=== PATIENT | male | born 1995 | race Caucasian/White ===

== ENCOUNTER 2020-02-15 20:42 | Emergency (ER) | payer OTHER, SELFPAY ==
--- NOTE | ~2020-02-15 | CT_ITS ---
EXAMINATION: CT abdomen pelvis w con DATE: 02/15/2020 21:54 INDICATION: Free intraperitoneal gas. Assess for viscus perforation. TECHNIQUE: Computed tomography (CT) of the abdomen and pelvis was performed with 100 mL Omnipaque-350 intravenous contrast. Automated exposure control and iterative reconstruction technique were employe d. The dose-length product was 1693.02 mGy-cm. COMPARISON: None FINDINGS: Mild discoid atelectasis in the right lower lobe. Heart size is normal. No pericardial or pleural eff usion. Slightly heterogeneous pattern of diffuse hepatic steatosis which is greatest in the right hep atic lobe. Gallbladder, spleen, pancreas, bilateral adrenal glands and kidneys are normal. Postoperat issac changes recent appendectomy with suture line at the tip of the cecum, small amount of free intrap eritoneal gas in the nondependent abdomen and pelvis and extending along the left inguinal canal. The re is also a small amount of ascites in the pelvis and scattered throughout the mesentery. Mild perip heral enhancement at a 2.6 x 1.3 x 3.1 cm loculated fluid collection near the site of the appendectom y in the right lower quadrant which could represent a small abscess. Gas and fluid is seen throughout the small bowel extending to the ileocecal valve with no rosemarie dilation or discrete transition point to suggest obstruction and is most consistent with a postoperative ileus. Largely decompressed colon is unremarkable. Decompressed bladder is unremarkable. No pathologically enlarged abdominal or pelvi c lymphadenopathy. Minimal gas in the subcutaneous fat at the left and right sides of the anterior pe lvic wall at the umbilicus likely along laparoscopy port tracts. Decreased bilateral anterosuperior f emoral head/neck offset which can predispose towards impingement. Mild bilateral hip osteoarthritis. IMPRESSION: 1. Postoperative change of recent appendectomy including small amount of free intraperitoneal gas and fluid. 2. Mild peripheral enhancement at a 2.6 x 1.3 x 3.1 cm loculated fluid collection near the site of th e appendectomy which could represent an early abscess but which is too small for percutaneous drainag e. 3. Likely postoperative ileus with fluid-filled small bowel without rosemarie dilation or transition poin t to suggest obstruction. Reviewed, dictated and finalized at location A. ERCIAL HVAC TECHNICIAN IMPRESSION: 1. Postoperative change of recent appendectomy including small amount of free i ntraperitoneal gas and fluid. 2. Mild peripheral enhancement at a 2.6 x 1.3 x 3.1 cm loculated fluid collecti on near the site of the appendectomy which could represent an early abscess but which is too small for percutaneous drainage. 3. Likely postoperative ileus with fluid-filled small bowel without rosemarie dilat ion or transition point to suggest obstruction.
--- NOTE | ~2020-02-15 | XR_ITS ---
EXAMINATION: XR abdomen obstructive series DATE: 02/15/2020 21:33 INDICATION: Abdominal distention and vomiting. TECHNIQUE: Frontal supine and upright views of the abdomen were obtained. COMPARISON: None. FINDINGS: There is some free intraperitoneal gas below the right hemidiaphragm. Per provided history patient ryan d a recent appendectomy 3 days prior and this likely represents residual postoperative gas. There are few gas-filled but not frankly dilated loops of small bowel in the midabdomen most likely postoperat issac ileus although differential would include an early or partial small bowel obstruction. Suture ezio es in the right lower quadrant in expected location for appendectomy. Lung bases are clear. Heart siz e is normal. IMPRESSION: 1. Free intraperitoneal gas below the right hemidiaphragm most likely postoperative given the histor y of recent surgery. 2. Air-fluid levels and gas within a few nondilated loops of small bowel most likely postoperative il eus although differential would include early or partial small bowel obstruction. Reviewed, dictated and finalized at location A. ODYNAMICS TEACHER IMPRESSION: 1. Free intraperitoneal gas below the right hemidiaphragm most likely postoper ative given the history of recent surgery. 2. Air-fluid levels and gas within a few nondilated loops of small bowel most l ikely postoperative ileus although differential would include early or partial small bowel obstruction.
[2020-02-15 20:46] VITALS: BP 140/95; PULSE 129; RESP 21; TEMP 36.1; O2SAT 94
--- NOTE | 2020-02-15 20:48 | ED.GENADULT ---
HPI - General Adult General Chief complaint: Nausea/Vomiting/Diarrhea Stated complaint: NAUSEA/[facility]ITING [facility] Time Seen by Provider: 02/15/20 20:47 Source: patient and family Mode of arrival: ambulatory Limitations: no limitations History of Present Illness HPI narrative: This 24-year-old male is here due to repetitive vomiting postoperatively. It is non-bilious, most recently yellowish . Patient had an appendectomy Saturday, discharged Saturday afternoon at the [facility]. He was discharged on oxycodone and Tylenol for pain and MiraLAX as a stool softener. He states he has been unable to take any medications today due to vomiting. Denies fever or chills, he had 1 small stool and states that his urine is very dark small volume. Onset (ago): hour(s) Treatments prior to arrival: none Related Data Allergies Allergy/AdvReac Type Severity Reaction Status Date / Time No Known Allergies Allergy Verified 02/15/20 20:44 Review of Systems Review of Systems: All systems reviewed & are unremarkable except as noted in HPI and below [facility] Social History Social History (Updated 02/15/20 @ 20:58 by Michelle Salinas PA-C) Smoking status: Never smoker Alcohol intake: never Substance use: never Living arrangements: with family Occupation/Education: occupation Additional occupation/education comments: Exam Const: General: alert and ill appearing acutely Orientation/consciousness: patient oriented x3 HENMT: Head: normal to inspection Eyes: Sclera: scleral abnormality Pupils: Equal, round and reactive pupils present Resp: Effort & Inspection: normal respiratory effort Auscultation: clear to auscultation bilaterally Cardio: Rate: tachycardic (124) Rhythm: regular rhythm GI: Inspection: distended Percussion: Yes tympanic to percussion Auscultation: absent bowel sounds Other: 3 small incisions intact, without drainage or erythema Skin: General skin exam: pallor Neuro: General: patient oriented x3 and moves all extremities Extrem: General: normal to inspection Psych: Mental Status: mental status grossly normal Course Course Emergency Course: Verbal report from radiologist states that there is some free air under the right hemidiaphragm, may be residual postoperative air versus perforation. There is concern for ileus as well. Recommends CT with contrast. Plan discussed with patient and . Spoke with surgery attending, Dr. Guero Thornton at the [facility]. He accepts patient, would like ER-ER transfer. Would like Zosyn and Flagyl given. Plan discussed with patient. I also discussed NG placement with patient and he refused. Vital Signs Vital signs: Vital Signs Temperature 36.1 C L 02/15/20 20:46 Pulse Rate 129 H 02/15/20 20:46 Respiratory Rate 21 H 02/15/20 20:46 Blood Pressure 140/95 H 02/15/20 20:46 Pulse Oximetry 94 02/15/20 20:46 Temperature 36.7 C 02/16/20 00:23 Pulse Rate 96 02/16/20 00:23 Respiratory Rate 17 02/16/20 00:23 Blood Pressure 145/94 H 02/16/20 00:23 Pulse Oximetry 97 02/16/20 00:23 Medical Decision Making Differential Diagnosis Differential Diagnosis: post-operative ileus vs perforation. Vital Signs Vital Signs: Vital Signs Temperature 36.1 C L 02/15/20 20:46 Pulse Rate 129 H 02/15/20 20:46 Respiratory Rate 21 H 02/15/20 20:46 Blood Pressure 140/95 H 02/15/20 20:46 Pulse Oximetry 94 02/15/20 20:46 Temperature 36.7 C 02/16/20 00:23 Pulse Rate 96 02/16/20 00:23 Respiratory Rate 17 02/16/20 00:23 Blood Pressure 145/94 H 02/16/20 00:23 Pulse Oximetry 97 02/16/20 00:23 Lab Data Lab results reviewed: Yes I reviewed the patient's lab results. Result diagrams: 02/15/20 20:53 02/15/20 20:53 Labs: Lab Results 02/15/20 02/15/20 02/15/20 Range/Units 20:53 20:53 21:11 WBC 13.1 H (4.5-10.0) K/mm3 RBC 5.79 (4.6-6.20) M/mm3 Hgb 16.9 (14.0-18.0) g/dL Hct 49.3
[2020-02-15 21:01] LABS: Basophils Percent Auto 0.2 % (0.2-1.2); Eosinophils Percent Auto 0.2 % (0-4.4); Hematocrit 49.3 % (42.0-52.0); Hemoglobin 16.9 g/dL (14.0-18.0); Immature Granulocyte Absolute 0.05 K/mm3 (0.00-0.031); Immature Granulocyte Percent A 0.4 % (0-0.5); Lymphocytes Absolute Auto 1.33 K/mm3 (0.9-3.2); Lymphocytes Percent Auto 10.2 % (18.3-44.2); Mean Corpuscular HGB Conc 34.3 g/dl (32-36); Mean Corpuscular Hemoglobin 29.2 pg (26-34); Mean Corpuscular Volume 85.1 fl (80-100); Mean Platelet Volume 10.4 fl (7.4-10.4); Monocytes Absolute Auto 1.7 K/mm3 (0.1-0.6); Monocytes Percent Auto 13.1 % (2.6-8.5); Neutrophils Absolute Auto 9.9 K/mm3 (1.3-6.7); Neutrophils Percent Auto 75.9 % (45.5-73.1); Platelet Count Result 496 k/mm3 (150-375); Red Blood Count 5.79 M/mm3 (4.6-6.20); Red Cell Distribution Width 12.3 % (11.5-14.5); White Blood Count 13.1 K/mm3 (4.5-10.0)
[2020-02-15 21:14] LABS: Alanine Aminotransferase 36 U/L (4-50); Albumin Level 4.6 g/dL (3.5-5.1); Alkaline Phosphatase 99 U/L (38-126); Anion Gap 17 mmol/L (8-16); Aspartate Amino Transferase 37 U/L (17-59); Bilirubin,Total 0.7 mg/dL (0.2-1.3); Blood Urea Nitrogen 30 mg/dL (9-20); Calcium 10.3 mg/dL (8.4-10.2); Carbon Dioxide 23 mmol/L (22-30); Chloride 99 mmol/L (98-107); Estimated CRCL calculation 109 ml/min; Estimated Glomerular Filt Rate > 60; Glucose 162 mg/dL (75-110); Lipase 29 U/L (23-300); Potassium 4.1 mmol/L (3.4-5.0); Sodium 139 mmol/L (137-145)
[2020-02-15] MEDS: ONDANSETRON INJ 4 MG/2 ML VIAL IV PUSH ×2 (21:23→23:03)
[2020-02-15] MEDS: SODIUM CHLORIDE 0.9% IV 1,000 ML 999 ML IV CONT ×2 (21:23→23:03)
[2020-02-15 21:28] LABS: Add Urine Microscopic? YES; Appearance Urine Cloudy (Clear); Bilirubin Urine 1+ (Negative); Blood Urine Negative (Negative); Color Urine Amber (Yellow); Glucose Urine UA Negative (Negative); Hyaline Casts Urine 30-49 /lpf; Ketones Urine Trace mg/dL (Negative); Leukocyte Esterase Ur Negative LEU/UL (Negative); Mucus Urine Heavy /lpf; Nitrate Urine Negative (Negative); Protein Urine 2+ mg/dL (Negative); Squamous Epithelial Cell Urine Occasional /hpf (Few); WBC Urine 0-3 /hpf
[2020-02-15 21:35] LABS: Specific Grav Ur 1.035 (1.001-1.035)
[2020-02-15] MEDS: metroNIDAZOLE 500 MG/ISO 100ML 500 MG/100 ML BAG 100 MG IVPB (23:01)
[2020-02-16 00:23] VITALS: BP 145/94; PULSE 96; RESP 17; TEMP 36.7; O2SAT 97
--- NOTE | 2020-02-16 00:46 | PC.NURSE ---
[facility] has arrived to transfer patient to [facility]
== END 2020-02-16 01:04 ==
PROVIDERS: Emergency Provider Emergency Medicine
DX: K91.89 Other postprocedural complications and disorders of digestive system (principal); K56.7 Ileus, unspecified; T81.43XA Infection following a procedure, organ and space surgical site, initial encounter; K65.1 Peritoneal abscess
CPT/HCPCS: 36415; 74019; 74177; 80053; 81001; 83690; 85025; 96361; 96365; 96367; 96375; 96376; 99285; J0131; J2405; J2543; J7030; Q9967

== ENCOUNTER 2022-03-05 12:37 | Emergency (ER) | payer OTHER, SELFPAY ==
[2022-03-05 12:44] VITALS: BP 143/70; PULSE 94; RESP 20; TEMP 37.1; O2SAT 100
--- NOTE | 2022-03-05 13:45 | ED.URI ---
HPI - URI/Sore Throat General Chief Complaint: Upper Respiratory Infection Stated Complaint: cold flu Time Seen by Provider: 03/05/22 13:45 Source: patient, RN notes reviewed and old records reviewed Mode of arrival: ambulatory Limitations: no limitations History of Present Illness HPI Narrative: 26-year-old male who presents [facility] with complaints of cough, fevers to 101.6F,sore throat starting . Patient reports he has been taking Mucinex DM,Tylenol and also Flonase for his symptoms. Patient admits to having some nasal sinus drainage some headache pain, pressure in ears also. He has not been COVID vaccinated nor had flu shot. MD elicited complaint: fever, cough, sore throat, rhinorrhea, nasal congestion and other (ear pressure) Onset (ago): day(s) (4) Related Data Allergies Allergy/AdvReac Type Severity Reaction Status Date / Time No Known Allergies Allergy Verified 03/05/22 12:52 Review of Systems Review of Systems: CONSTITUTIONAL: Reports malaise, chills, sweats, or fever. EYES: Denies visual changes, redness, or discharge. ENT: Reports rhinorrhea, congestion, sinus pain, otalgia and sore throat. CARDIOVASCULAR: Denies chest pain, palpitations, or edema. RESPIRATORY: Reports frequent cough.? Denies acute dyspnea. GASTROINTESTINAL: Denies abdominal pain, nausea, vomiting, diarrhea SKIN: Denies rash or itching. MUSCULOSKELETAL: Denies myalgia. NEUROLOGIC:Reports headache. All systems reviewed & are unremarkable except as noted in HPI and below PMFSH Surgical History Surgical History (Updated 03/15/22 @ 14:58 by Rebecca Lujan NP) History of placement of ear tubes Hx of appendectomy Social History Social History (Updated 02/15/20 @ 20:58 by Michelle Salinas PA-C) Smoking status: Never smoker Alcohol intake: never Substance use: never Additional occupation/education comments: Comments At time of signature, agree with nursing past medical, surgical, social and family history. There is no relevant family history pertinent to the presenting complaint Exam Narrative: GENERAL: Well-appearing, well-nourished, and in no acute distress. HEAD: Normocephalic EYES: PERRLA, conjunctivae clear ENT: Nares clear, turbinates edematous and erythematous, clear discharge. Mucous membranes moist. Left TM red and bulging, Right TM pearly brandon with dull light reflex; no tragal tenderness. Oropharynx erythematous without lesions. Tonsils not enlarged and without exudate, no drooling, no hoarseness, no trismus, uvula midline. NECK: Supple. No lymphadenopathy CHEST: Clear to auscultation, breath sounds equal. No wheezing, rhonchi, rales, or stridor. No respiratory distress, speaks in full sentences.frequent cough, SAO2 100% on room air HEART: Regular rate and rhythm. No murmur heard. SKIN: Warm, dry, no rash. NEURO: Alert and oriented x3. PSYCH: Normal mood and affect Course Course Emergency Course: Patient is aware of diagnosis, understands and agrees to treatment plan.? Anticipatory guidance given.? Patient agrees to follow-up as directed and is aware of reasons to seek care at the emergency department. Portions of this record may have been created with voice recognition software Level of Care: [facility] Visit Vital Signs Vital signs: Vital Signs Temperature 37.1 C 03/05/22 12:44 Pulse Rate 94 03/05/22 12:44 Respiratory Rate 20 03/05/22 12:44 Blood Pressure 143/70 H 03/05/22 12:44 Pulse Oximetry 100 03/05/22 12:44 Oxygen Delivery Room Air 03/05/22 12:44 Temperature 37.1 C 03/05/22 12:44 Pulse Rate 94 03/05/22 12:44 Respiratory Rate 20 03/05/22 12:44 Blood Pressure 143/70 H 03/05/22 12:44 Pulse Oximetry 100 03/05/22 12:44 Oxygen Delivery Room Air 03/05/22 12:44 Reviewed MDM - URI/Sore Throat MDM Narrative Medical decision making narrative: Differential diagnosis considered: [place] virus, strep pharyngitis,
== END 2022-03-05 14:05 | disposition home or self-care (01) ==
PROVIDERS: Emergency Provider Registered Nurse
DX: J06.9 Acute upper respiratory infection, unspecified (principal); H66.92 Otitis media, unspecified, left ear
CPT/HCPCS: 99213; G0463

== ENCOUNTER 2024-12-14 08:22 | Emergency (ER) | payer BC, SELFPAY ==
--- NOTE | ~2024-12-14 | XR_ITS ---
EXAMINATION: XR ankle LT min 3V, 12/14/2024 9:30 CDT HISTORY: pain, anterior swelling TWISTING INJ LAT MALLEOLAR ATTN COMPARISON: No comparisons available. Findings: No acute fracture or malalignment. No significant degenerative changes. Soft tissues unremarkable. Impression: No acute fracture or malalignment. Reviewed, dictated and finalized at location P. Impression: No acute fracture or malalignment.
--- NOTE | ~2024-12-14 | XR_ITS ---
EXAMINATION: XR foot LT min 3V, 12/14/2024 9:30 CDT HISTORY: pain COMPARISON: No comparisons available. Findings: No acute fracture or malalignment. No significant degenerative changes. Soft tissues unremarkable. Impression: No acute fracture or malalignment. Reviewed, dictated and finalized at location P. Impression: No acute fracture or malalignment.
[2024-12-14 08:26] VITALS: BP 171/103; PULSE 72; RESP 20; TEMP 36.7; O2SAT 97
[2024-12-14 08:29] VITALS: BP 171/103; O2SAT 92
--- OUTSIDE RECORDS SUMMARY | 2024-12-14 08:30 | XMS_ITS | Clinical Summary ---
Author Organization [facility] [employer] Address [address] [place] [address] Care Team Providers Care Dental Equipment Mechanic Name Role Phone Unavailable Primary Care Provider Unavailabl e Source Comments [facility],non-owned Affiliates and Associated Physician Practices is amultiple site organization consisting of ambulatory clinics and hospital sitesin [place], [place], [place] and [place]. This disclosure is being madepursuant to the Care Everywhere program and may not contain all information available regarding this patient. 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[employer] Gender Identity Not on file Sexual Orientation Not on file Plan of Treatment Health Maintenance Due Date Last Done Comments HIV SCREENING 2008 HEPATITIS C SCREENING 10/27/2011 DTAP/TDAP/TD VACCINES (1 - Tdap) 2012 HEPATITIS B VACCINE (1 of 3 - 19+ 3-dose series) 2012 HPV VACCINE (1 - 3-dose SCDM series) 2020 DEPRESSION SCREENING 03/18/2024 COVID-19 VACCINE (1 - 2023-2 5 season) 2024 INFLUENZA VACCINE (#1) 2024 ZOSTER VACCINE (1 of 2) 11/01/2043 HIB VACCINE Aged Out No longer eligi ble based on patient's age to complete this topic MENINGOCOCCAL (Group B) VACC INE SHARED DECISION-MAKING Aged Out No longer eligibl e based on patient's age to complete this topic MENINGOCOCCAL GROUPS A/C/Y/W VACCINE Aged Out No longer eligible b ased on patient's age to complete this topic PNEUMOCOCCAL VACCINE Aged Out No long er eligible based on patient's age to complete this topic
[2024-12-14 08:31] VITALS: BP 143/90
[2024-12-14 08:32] VITALS: BP 143/90; O2SAT 99
[2024-12-14] MEDS: IBUPROFEN 400 MG TABLET 800 MG PO (09:13)
--- OUTSIDE RECORDS SUMMARY | 2024-12-14 09:43 | XMS_ITS | Clinical Summary ---
Author Organization [facility] [employer] Address [address] [place] [address] Care Team Providers Care Manager Marketing Name Role Phone Unavailable Primary Care Provider Unavailabl e Source Comments [facility],non-owned Affiliates and Associated Physician Practices is amultiple site organization consisting of ambulatory clinics and hospital sitesin [place], [place], [place] and [place]. This disclosure is being madepursuant to the Care Everywhere program and may not contain all information available regarding this patient. 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
--- NOTE | 2024-12-14 10:33 | ED.LOWEXIN ---
HPI - Extremity Injury (Lower) General Chief Complaint: Extremity Injury, Lower Stated Complaint: L foot pain Time Seen by Provider: 12/14/24 08:58 Source: patient and RN notes reviewed Mode of arrival: ambulatory Limitations: no limitations History of Present Illness HPI Narrative: THis is a 29 year old male who presents for evaluation of left ankle and foot pain. He states that he twisted his left ankle on Saturday. HE was doing okay until yesterday he developed more pain yesterday while playing with his son. He reports pain with bearing weight. He took tylenol yesterday for his pain but he did not take anything today. He has swelling and pain on top of his left foot. Related Data Allergies Allergy/AdvReac Type Severity Reaction Status Date / Time No Known Allergies Allergy Verified 12/14/24 08:31 [facility] Surgical History Surgical History (Updated 03/15/22 @ 14:58 by Rebecca Lujan NP) History of placement of ear tubes Hx of appendectomy Social History Social History Smoking status: Never smoker Alcohol intake: never Substance use: never Living arrangements: with family Occupation/Education: occupation Additional occupation/education comments: Exam Const: General: no acute distress Nutritional Appearance: well nourished Orientation/consciousness: patient oriented x3 Resp: Effort & Inspection: normal respiratory effort Skin: Other: mild bruising to left anterior ankle. Neuro: General: patient oriented x3, moves all extremities and CN's II-XI intact bilaterally Extrem: Other: left ankle swelling and focal swelling to left anterior ankle, area of tenderness Psych: Mental Status: mental status grossly normal Affect: normal affect Attitude: cooperative Course Reevaluation(s) Reevaluation #1: I Discussed with patient that his xray is negative. I discussed placing splint and crutches vs getting walking boot . He declines crutches and splint. Date: 12/14/24 Time: 10:37 Vital Signs Vital signs: Vital Signs Temperature 98.1 F 12/14/24 08:26 Pulse Rate 72 12/14/24 08:26 Respiratory Rate 20 12/14/24 08:26 Blood Pressure 171/103 H 12/14/24 08:26 Pulse Oximetry 97 12/14/24 08:26 Oxygen Delivery Room Air 12/14/24 08:26 Temperature 98.1 F 12/14/24 08:26 Pulse Rate 72 12/14/24 08:26 Respiratory Rate 20 12/14/24 08:26 Blood Pressure 136/90 12/14/24 10:47 Pulse Oximetry 99 12/14/24 08:32 Oxygen Delivery Room Air 12/14/24 08:26 MDM - Extremity Injury (Lower) Differential Diagnosis Differential diagnosis: Likely ankle sprain and strain and ankle fracture Imaging Data Radiologist's impression: ITS Impressions Ankle X-Ray 12/14/24 09:42 Impression: No acute fracture or malalignment. Foot X-Ray 12/14/24 09:42 Impression: No acute fracture or malalignment. Discharge Plan Discharge Clinical Impression: Left ankle sprain Qualifiers: Encounter type: initial encounter Patient Disposition: Home Condition: Stable Instructions: Antibiotic Form, Ankle Sprain (ED) Additional Instructions: Get walking boot to help deal with your pain. If your pain does not improve in 1 week follow up with primary care provider or orthopedic surgeon Patient Language: Indonesian Prescriptions: No Action amoxicillin-pot clavulanate 875-125 mg tablet 1 tablet PO Q12H Qty: 20 0RF prednisone 20 mg tablet 20 mg PO BID Qty: 10 0RF Follow-up/Referrals: PHYSICIAN,ADMINISTRATIVE SUPPORT SPECIALIST [Primary Care Provider, Internal Medicine] Edmundo Richardson MD [Physician, Orthopedics] Stand Alone Forms: Work/School Release IP
[2024-12-14 10:47] VITALS: BP 136/90
== END 2024-12-14 10:49 | disposition home or self-care (01) ==
PROVIDERS: Emergency Provider General Practice
DX: S93.402A Sprain of unspecified ligament of left ankle, initial encounter (principal); X50.0XXA Overexertion from strenuous movement or load, initial encounter
CPT/HCPCS: 73610; 73630; 99283; A9270